=== PATIENT | female | born 1950 | race Caucasian/White ===

== ENCOUNTER → 2016-11-29 | Outpatient (CLI) | payer MEDICARE, BC ==
[~2016-11-29] MED LIST: AMLO5TAB2 PO; CALC1TAB67 PO; LOSA1TAB17 PO; MELO-150 PO; OMEG300C PO; PRAV40TA2 PO; RANI150T2 PO
--- NOTE | 2016-11-29 18:15 | KCIC ---
PROCEDURE Thyroid ultrasound HISTORY Thyroid nodule COMPARISON None other than CT chest November 10, 2016 FINDINGS Multiple sonographic images of the thyroid gland are submitted. Right lobe measured 3.6 x 1.2 x 1.6 centimeters. Left lobe measured 4.7 x 1.1 x 1.9 centimeters. Isthmus measures 0.3 centimeters in thickness. There is a small complex partially cystic nodule of the inferior right gland up to 0.4 centimeters greatest size, not associated with internal vascularity on color Doppler imaging. There is also a tiny hypoechoic probably partially cystic lesion of the mid right gland 0.1-0.2 centimeters in size. There is a hypoechoic lesion with peripheral more solid echogenicity of the inferior left gland up to 1.1 x 0.5 x 0.6 centimeters in size, some vascularity at the periphery. There is also small hypoechoic lesion of the mid left gland 0.1-0.2 centimeters in size. IMPRESSION 1. There are bilateral thyroid nodules, largest complex cystic lesion of the inferior left gland up to 1.1 centimeters in size. Electronically signed by: Brayden Haas MD (Nov 29, 2016 18:14:17)
== END | disposition home or self-care (01) ==
LOC: KCIC US 13:24
PROVIDERS: ATTEND Family Medicine
DX: E04.1 Nontoxic single thyroid nodule (principal)
CPT/HCPCS: 76536

== ENCOUNTER → 2016-12-22 | Outpatient (CLI) | payer MEDICARE, BC ==
--- NOTE | 2016-12-22 13:38 | KCIC ---
PROCEDURE Bone density DEXA. HISTORY Postmenopausal, family history of osteoporosis. Screening. COMPARISON None. FINDINGS Dual photon densitometry of the lumbar spine and left proximal femur is performed. Bone mineral density values are measured in grams per cm2. Lumbar spine, L1-L4, total bone mineral density is 0.994, T-score -0.5, Z-score 1.3. Left total femur bone mineral density 0.818, T-score -1.0, Z-score 0.2. World Health Organization criteria for bone mineral density interpretation classify patient's as normal (T-score at or above -1.0), osteopenic (T-score between -1 and -2.5), or osteoporotic (T-score at or below -2.5). IMPRESSION Normal bone mineral density of the lumbar spine and low normal bone mineral density of the left femur. Electronically signed by: Monty Crenshaw MD (Dec 22, 2016 13:36:38)
== END | disposition home or self-care (01) ==
LOC: KCIC DEXA 10:42
PROVIDERS: ATTEND Internal Medicine Endocrinology, Diabetes & Metabolism
DX: Z13.820 Encounter for screening for osteoporosis (principal); Z78.0 Asymptomatic menopausal state; Z82.62 Family history of osteoporosis
CPT/HCPCS: 77080

== ENCOUNTER → 2017-11-02 | Outpatient (CLI) | payer MEDICARE, BC ==
[~2017-11-02] MED LIST changes: -LOSA1TAB17 PO; +LOSA1TAB22 PO; -MELO-150 PO; +MELO15TA23 PO
--- NOTE | 2017-11-02 12:11 | RAD ---
Examination: CT chest without contrast History: History of lung nodule Comparison: 01/11/2016 Technique: Axial CT images of chest were performed without contrast. Coronal and sagittal reformats were performed PQRS Compliance Statement: One or more of the following individualized dose reduction techniques were utilized for this examination: 1. Automated exposure control 2. Adjustment of the mA and/or kV according to patient size 3. Use of iterative reconstruction technique Findings: Tiny subcentimeter nodule identified in the left lobe of the thyroid gland again identified. The central airways are patent. The ascending aorta measures 3.5 cm in transverse dimension The heart size grossly appears unremarkable. Coronary artery calcifications identified. Mild atelectasis right middle lobe of the lung. No evidence of pleural effusion or pneumothorax. No obvious pulmonary nodule visualized. The visualized noncontrasted liver, spleen, adrenals grossly appears unremarkable. Partially visualized cystic density identified in the right kidney. Mild degenerative changes thoracic spine. Impression: 1. No evidence of obvious pulmonary nodule. 2. Linear scarring right middle lobe of the lung unchanged. 3. Coronary artery calcifications.
== END | disposition home or self-care (01) ==
LOC: CT 10:53
PROVIDERS: ATTEND Internal Medicine Pulmonary Disease
DX: I25.10 Atherosclerotic heart disease of native coronary artery without angina pectoris (principal); R91.1 Solitary pulmonary nodule
CPT/HCPCS: 71250

== ENCOUNTER → 2018-10-25 | Outpatient (CLI) | payer MEDICARE, BC ==
[~2018-10-25] MED LIST changes: -AMLO5TAB2 PO; +AMLO5TAB7 PO
--- NOTE | 2018-10-25 11:48 | RAD ---
CT of the chest without contrast, 10/25/2018: HISTORY: Shortness of breath, atelectasis, follow-up Noncontrast scans were obtained and compared to a study from 11/02/2017. There is moderate calcific plaquing of the thoracic aorta. Several coronary artery calcifications are noted. There is a mild pectus excavatum deformity. The heart is within normal limits in size. No mediastinal adenopathy is evident. There is minimal chronic atelectasis and/or scarring medially in the right middle lobe and lingula. A few other scattered linear opacities in the lower chest are compatible with scarring. No pulmonary mass or dense consolidation is seen. There is no evidence of pleural fluid. The central bronchi are widely patent. There is no evidence of pleural fluid. Moderate scattered degenerative changes are present in the spine. IMPRESSION: 1. Mild bilateral linear scarring and/or atelectasis. 2. Mild pectus excavatum deformity. 3. Coronary artery calcifications. PQRS Compliance Statement: One or more of the following individualized dose reduction techniques were utilized for this examination: 1. Automated exposure control 2. Adjustment of the mA and/or kV according to patient size 3. Use of iterative reconstruction technique Electronically signed by: Philip Berumen MD (10/25/2018 11:44 AM) [facility]
== END | disposition home or self-care (01) ==
LOC: CT 09:15
PROVIDERS: ATTEND Internal Medicine Pulmonary Disease
DX: M95.4 Acquired deformity of chest and rib (principal); I25.10 Atherosclerotic heart disease of native coronary artery without angina pectoris; R91.8 Other nonspecific abnormal finding of lung field
CPT/HCPCS: 71250

== ENCOUNTER → 2019-03-04 | Outpatient (CLI) | payer MEDICARE, BC ==
[~2019-03-04] MED LIST changes: +AMLO5TAB10 PO; -AMLO5TAB7 PO
--- NOTE | 2019-03-04 14:07 | RAD ---
DATE: 03/04/2019 EXAM: MAMMO IZABEL SCREENING BILATERAL HISTORY: Routine screening. Previous mass removal 4 years ago reported. COMPARISON: None available This study was interpreted with the benefit of Computerized Aided Detection (CAD). Breast Density: SCATTERED The breast parenchyma shows scattered fibroglandular densities. Breast parenchyma level B. FINDINGS: Right axillary lymph nodes are present. No suspicious mass or distortion. No suspicious calcification. IMPRESSION: Benign findings. BI-RADS CATEGORY: 1 NEGATIVE RECOMMENDED FOLLOW-UP: 12M 12 MONTH FOLLOW-UP PQRS compliance statement: Patient information was entered into a reminder system with a target due date in one year for the next mammogram. Mammography is a sensitive method for finding small breast cancers, but it does not detect them all and is not a substitute for careful clinical examination. A negative mammogram does not negate a clinically suspicious finding and should not result in delay in biopsying a clinically suspicious abnormality. "Our facility is accredited by the [employer] Mammography Program."
== END | disposition home or self-care (01) ==
LOC: MAMMO 10:24
PROVIDERS: ATTEND Family Medicine
DX: Z12.31 Encounter for screening mammogram for malignant neoplasm of breast (principal); R92.8 Other abnormal and inconclusive findings on diagnostic imaging of breast
CPT/HCPCS: 77063; 77067

== ENCOUNTER → 2019-04-24 | Day surgery (SDC) | payer MEDICARE, BC ==
[~2019-04-24] MED LIST changes: +IV RINGERS,LACTATED 1000ML 1,000 ML IV SCH; +LIDOCAINE 2% PF 5 ML VIAL. ONE; +PROPOFOL 40 ML IV ONE
[2019-04-24 14:09] VITALS: BP 107/63
== END | disposition home or self-care (01) ==
LOC: ENDOS 12:31
PROVIDERS: ATTEND Internal Medicine Gastroenterology
DX: Z12.11 Encounter for screening for malignant neoplasm of colon (principal); K57.30 Diverticulosis of large intestine without perforation or abscess without bleeding; K64.0 First degree hemorrhoids; I10 Essential (primary) hypertension; E78.00 Pure hypercholesterolemia, unspecified; K21.9 Gastro-esophageal reflux disease without esophagitis; Z87.19 Personal history of other diseases of the digestive system; Z80.0 Family history of malignant neoplasm of digestive organs; Z86.010 Personal history of colon polyps; Z88.8 Allergy status to other drugs, medicaments and biological substances; Z83.3 Family history of diabetes mellitus; Z82.49 Family history of ischemic heart disease and other diseases of the circulatory system; Z82.3 Family history of stroke; Z72.0 Tobacco use; Z79.899 Other long term (current) drug therapy; Z98.51 Tubal ligation status
CPT/HCPCS: G0105; J2001; J2704; 45378